=== PATIENT | female | born 1995 | race Caucasian/White ===

== ENCOUNTER → 2023-08-10 15:49 | Outpatient (REF) | payer BC, SELFPAY | LOC: PNTC 15:49 | PROVIDERS: ATTENDING PHYSICIAN Obstetrics & Gynecology | DX: Z36.82 Encounter for antenatal screening for nuchal translucency (principal); Z36.0 Encounter for antenatal screening for chromosomal anomalies | CPT/HCPCS: 76801; 76813 ==

== ENCOUNTER → 2023-09-03 15:49 | Outpatient (REF) | payer BC, SELFPAY | LOC: PNTC 15:49 | PROVIDERS: ATTENDING PHYSICIAN Obstetrics & Gynecology | DX: N93.0 Postcoital and contact bleeding (principal) | CPT/HCPCS: 76805 ==

== ENCOUNTER → 2023-12-28 17:13 | Outpatient (REF) | payer BC, SELFPAY | LOC: PNTC 17:13 | PROVIDERS: ATTENDING PHYSICIAN Student in an Organized Health Care Education/Training Program | DX: O76 Abnormality in fetal heart rate and rhythm complicating labor and delivery (principal) | CPT/HCPCS: 59025 ==

== ENCOUNTER 2024-02-15 07:48 | Inpatient (IN) | payer BC, SELFPAY ==
[2024-02-15 08:25] VITALS: BP 94/51; BMI 32.6
[2024-02-15 08:26] LABS: % Basophils 0.3 % (0-2); % Eosinophils 0.1 % (0-6); % Immature Granulocytes 0.7 % (0-0.5); % Lymphocytes 10.3 % (20.5-51.1); % Monocytes 4.6 % (1.7-9.3); Absolute Immature Granulocytes 0.1 10^3/uL (0-0.05); Absolute Lymphocytes 1.5 10^3/uL (1.2-3.4); Absolute Monocytes 0.7 10^3/uL (0.1-0.6); Absolute Neutrophils 12.5 10^3/uL (1.4-6.5); Hematocrit 35.8 % (37.0-47.0); Hemoglobin 11.6 g/dL (12.0-16.0); Mean Corp Hgb Conc. 32.4 g/dL (33.0-37.0); Mean Corpuscular Hgb 28.1 pg (27.0-31.0); Mean Corpuscular Volume 86.7 fL (81.0-99.0); Mean Platelet Volume 10.8 fL (7.4-10.4); Nucleated Red Blood Cells % 0 %; Platelet Count 188 10^3/uL (130-400); Red Blood Cell Count 4.13 10^6/uL (4.20-5.40); Red Cell Dist. Width 14.2 % (11.5-14.5); White Blood Cell Count 14.9 10^3/uL (4.8-10.8)
[2024-02-15] MEDS: LR 1000 IV ×3 (08:30→10:54)
[2024-02-15] MEDS: SUBLIMAZE 100 MCG EPIDURAL (09:01)
[2024-02-15] MEDS: FENTANYL/BUPIVACAINE 100 EPIDURAL ×2 (09:01→15:54)
[2024-02-15] MEDS: ANCEF 10 IV (17:34)
[2024-02-15] MEDS: TYLENOL 1000 MG PO (17:34)
[2024-02-15] MEDS: BICITRA 30 ML PO (17:34)
[2024-02-15] MEDS: ZITHROMAX INFUSION 250 IV (18:05)
[2024-02-16] MEDS: TORADOL 15 MG IV ×4 (00:54→18:03)
[2024-02-16 06:37] LABS: Hematocrit 27.8 % (37.0-47.0); Hemoglobin 8.8 g/dL (12.0-16.0); Mean Corp Hgb Conc. 31.7 g/dL (33.0-37.0); Mean Corpuscular Hgb 27.9 pg (27.0-31.0); Mean Corpuscular Volume 88.3 fL (81.0-99.0); Mean Platelet Volume 11.3 fL (7.4-10.4); Platelet Count 177 10^3/uL (130-400); Red Blood Cell Count 3.15 10^6/uL (4.20-5.40); Red Cell Dist. Width 14.6 % (11.5-14.5); White Blood Cell Count 22.4 10^3/uL (4.8-10.8)
[2024-02-16] MEDS: PRENATAL PLUS 1 TABLET PO (08:04)
[2024-02-16 08:28] LABS: Cord VBG B.E. - POC -4.7 mmol/L; Cord VBG HCO3 - POC 22 mmol/L; Cord VBG pCO2 - POC 46 mmHg; Cord VBG pH - POC 7.29; Cord VBG pO2 - POC < 40 mmHg
[2024-02-16] MEDS: FERRLECIT 110 MG IV (11:08)
[2024-02-16] MEDS: TYLENOL 650 MG PO (20:06)
[2024-02-17] MEDS: TYLENOL 650 MG PO ×3 (00:49→18:06)
[2024-02-17] MEDS: MOTRIN 600 MG PO ×3 (00:49→18:06)
[2024-02-17] MEDS: PERCOCET 5/325 1 TABLET PO (05:28)
[2024-02-17] MEDS: SENOKOT-S 1 TABLET PO (05:34)
[2024-02-17] MEDS: MYLICON 80 MG PO ×2 (05:34→15:30)
[2024-02-17] MEDS: PRENATAL PLUS 1 TABLET PO (08:21)
[2024-02-18] MEDS: TYLENOL 650 MG PO ×2 (02:46→10:38)
[2024-02-18] MEDS: MOTRIN 600 MG PO ×2 (02:46→10:38)
[2024-02-18 08:01] LABS: Cord ABG B.E. - POC -3.8 mmol/L; Cord ABG HCO3 - POC 23 mmol/L; Cord ABG pCO2 - POC 49 mmHg; Cord ABG pH - POC 7.29; Cord ABG pO2 - POC < 40 mmHg
[2024-02-18] MEDS: PRENATAL PLUS 1 TABLET PO (10:38)
[2024-02-18] MEDS: SENOKOT-S 1 TABLET PO (10:38)
--- NOTE | 2024-02-18 13:52 | W.DS.TRANS ---
DC Summary - [facility]
-
Discharge Instructions:
Discharge Diagnosis/Procedures delivered via section
Diet No restrictions
Activity No strenuous activity
Driving Restrictions No driving for 2 weeks
Bathing Restrictions OK to Shower
Instructions:
Stand-Alone Forms: [facility] Delivery
Changes to Home Medications: No
Discharge Medications:
DC Medications w/original date entered in [facility]
acetaminophen 325 mg tablet 650 mg (2 x 325 mg) PO Q4HPRN PRN mild pain #7 tabs 02/18/24
ibuprofen 600 mg tablet 600 mg PO Q6HPRN PRN cramps #90 tabs 02/18/24
vitamin with calcium no.72-iron 27 mg-folic acid 1 mg tablet (WesTab Plus) 1 tab PO DAILY #1 tab 02/18/24
sennosides 8.6 mg-docusate sodium 50 mg tablet 1 tab PO DAILYPRN PRN constipation #1 tab 02/18/24
Home Medication Changes
Pending Results: No
--- NOTE | 2024-02-18 13:53 | W.DCSUMMARY ---
Discharge Summary
Discharge Data
Date of Admission: 02/15/24
Date of Discharge: 02/18/24
-
Pending Results: Yes
Additional Pending Results:
placenta pathology
Hospital Course
Patient is a 28yo who presented to Labor and Delivery on 02/14 with complaints of contractions. She was 3/80/-2 on admission. She made change to 6/90/-2 and artificial rupture of membranes was performed for clear fluid. After a few hours, she
was found to be the same exam and pitocin was started for augmentation. She then had a persistent category 2 tracing despite stopping pitocin. She remained 6/90/-2 and section was recommended. She under went a primary low transverse
section on 02/14. The procedure was uncomplicated. The QBL was 710. She delivered a viable male infant. The placenta was noted to be bilobed and calcified and sent to pathology for evaluation. On POD#1, her hemoglobin was 8.8. She received
a dose of IV iron. She had no signs or symptoms of anemia. On POD#3, she was meeting all her milestones and was discharged home. She was instructed to follow up in 2 weeks for an incision check. Discharge instructions and return
precautions were discussed prior to discharge.
Discharge Plan
-
Patient Disposition: Home (Routine Discharge)
Discharge Diagnosis/Procedures: delivered via section
Condition: Good
Diet: No restrictions
Activity: No strenuous activity
Driving Restrictions: No driving for 2 weeks
Bathing Restrictions: OK to Shower
Stand Alone Forms: [facility] Delivery
Referrals:
Catia Dumont MD [Family Provider] -
Ileana Mcgovern MD [Active] - in two weeks
Prescriptions:
New
ibuprofen 600 mg Tablet
600 mg PO Q6HPRN PRN (Reason: cramps) Qty: 90 0RF
WesTab Plus 27 mg iron- 1 mg Tablet
1 tab PO DAILY Qty: 1 0RF
acetaminophen 325 mg Tablet
650 mg PO Q4HPRN PRN (Reason: mild pain) Qty: 7 0RF
sennosides-docusate sodium 8.6-50 mg Tablet
1 tab PO DAILYPRN PRN (Reason: constipation) Qty: 1 0RF
Discontinued
Vitamin tablet
1 mg PO DAILY
Discharge Orders:
Discharge Patient (As Directed); Ordered 02/18/24
Ordered By: Shea Grande
Discharge Date and Time
Discharge Date/Time: 02/18/24 11:35
Print Language: ITALIAN
[2024-02-19 11:18] LABS: Syphilis/T. pallidum Ab Reflex Negative (Negative)
== END 2024-02-18 11:35 | disposition home or self-care (01) | DRG 788 ==
LOC: LDRP 07:48
PROVIDERS: Obstetrics & Gynecology; ADMITTING PHYSICIAN Obstetrics & Gynecology; ATTENDING PHYSICIAN Obstetrics & Gynecology; FAMILY PHYSICIAN Internal Medicine
PROC: 10D00Z1 Extraction of Products of Conception, Low, Open Approach (ICD-10-PCS; 2024-02-15)
PROC: 10907ZC Drainage of Amniotic Fluid, Therapeutic from Products of Conception, Via Natural or Artificial Opening (ICD-10-PCS; 2024-02-15)
DX: O36.8130 Decreased fetal movements, third trimester, not applicable or unspecified (principal); Z3A.39 39 weeks gestation of pregnancy; Z37.0 Single live birth; O76 Abnormality in fetal heart rate and rhythm complicating labor and delivery; O90.81 Anemia of the puerperium; D64.9 Anemia, unspecified; Z83.3 Family history of diabetes mellitus; Z28.310 Unvaccinated for COVID-19
CPT/HCPCS: 88307; 36415; 85025; 85027; 86780; 86850; 86900; 86901; J2916